=== PATIENT | female | born 1995 | race Caucasian/White ===

== ENCOUNTER → 2024-05-26 | Outpatient (CLI) | payer OTHER | END | disposition home or self-care (01) | LOC: NST 14:59 | PROVIDERS: ATTEND Obstetrics & Gynecology | DX: Z34.83 Encounter for supervision of other normal pregnancy, third trimester (principal) ==

== ENCOUNTER 2024-06-02 13:00 | Inpatient (IN) | payer OTHER ==
[~2024-06-02] VITALS: Ht 157.5 cm; Wt 68.0 kg
[2024-06-05] MEDS ORDERED: FERRACTIV IRON1 EACH PO (03:02)
[2024-06-05] MEDS ORDERED: PRENATAL TABLE1 EAC1 PO (03:02)
[2024-06-06] VITALS (11 sets, daily range): BP systolic 103–134; BP diastolic 69–85
[2024-06-06] MEDS ORDERED: MORPHINE SULFATE 4 MG/ML CARTRIDGE IV PRN (06:00)
[2024-06-06] MEDS ORDERED: RINGERS SOLUTION,LACTATED 1,000 ML IV SCH (06:00)
[2024-06-06 07:33] LABS: INR < 0.93; PARTIAL THROMBOPLASTIN TIME 28.8 SECONDS (22.0-34.0); PROTHROMBIN TIME 10.1 SECONDS (9.0-11.5)
[2024-06-06 07:36] LABS: ALBUMIN 3.1 gm/dL (3.4-5.0); BILIRUBIN TOTAL 0.41 mg/dL (0.3-1.2); CREATININE SERUM 0.71 mg/dL (0.55-1.02); GFR 96.66; GLOBULINA 3.9 G/DL (2.4-3.5); POTASSIUM 4.08 mEq/L (3.5-5.1)
[2024-06-06 07:51] LABS: HEMATOCRIT 40.4 % (36.0-45.00); HEMOGLOBIN 13.6 g/dL (12.0-15.00); MEAN CELL VOLUME 88.4 fL (80.00-100.00); MEAN CORPUSCULAR HEMOGLOBIN 29.6 pg (27.00-32.0); MEAN CORPUSCULAR HGB CONC 33.5 g/dl (32.0-36.0); PLATELET COUNT 190 K/uL (150-450); RED BLOOD COUNT 4.57 M/uL (4.00-6.00); RED CELL DISTRIBUTION WIDTH 14.6 % (11.5-14.5)
[2024-06-06] MEDS ORDERED: CHLORHEXIDINE GLUCONATE 120 ML BOTTLE TOP SCH (13:00)
[2024-06-06] MEDS ORDERED: OxyCODONE HCL/APAP UD (PERCOCET) PO PRN (13:00)
[2024-06-06] MEDS ORDERED: OXYTOCIN 1,000 ML IV SCH (13:00)
[2024-06-06] MEDS ORDERED: LIDOCAINE HCL 1% 20 ML VIAL IJ ONE (13:45)
[2024-06-06] MEDS ORDERED: ERYTHROMYCIN BASE OPHT 1GM EACH TUBE OP ONE (13:45)
[2024-06-06] MEDS ORDERED: DOCUSATE SODIUM 100MG CAP PO SCH (17:00)
[2024-06-06] MEDS ORDERED: KETOROLAC TROMETHAMINE 10 MG TABLET PO SCH (18:00)
[2024-06-07 00:53] VITALS: BP 113/73
[2024-06-07 08:43] VITALS: BP 104/67
[2024-06-07] MEDS ORDERED: PNV,CALCIUM 72/IRON/FOLIC ACID 1 TAB TABLET PO SCH (09:00)
[2024-06-07 16:20] VITALS: BP 109/61
[2024-06-08 02:36] VITALS: BP 107/64
[2024-06-08 08:37] VITALS: BP 127/76
[2024-06-08 16:41] VITALS: BP 110/72
== END 2024-06-08 17:03 | disposition home or self-care (01) | DRG 807 ==
LOC: OB/GYN 06-06 05:57 → LDR 06-06 05:57 → OB/GYN 06-06 13:30 → LDR 06-09 13:00
PROVIDERS: Obstetrics & Gynecology; ADMIT Obstetrics & Gynecology; ATTEND Obstetrics & Gynecology
PROC: 10E0XZZ Delivery of Products of Conception, External Approach (ICD-10-PCS; principal; 2024-06-06)
PROC: 0KQM0ZZ Repair Perineum Muscle, Open Approach (ICD-10-PCS; 2024-06-06)
PROC: 0W8NXZZ Division of Female Perineum, External Approach (ICD-10-PCS; 2024-06-06)
PROC: 4A1HXCZ Monitoring of Products of Conception, Cardiac Rate, External Approach (ICD-10-PCS; 2024-06-06)
DX: O70.1 Second degree perineal laceration during delivery (principal); Z37.0 Single live birth; Z3A.39 39 weeks gestation of pregnancy; Z20.822 Contact with and (suspected) exposure to COVID-19

== ENCOUNTER 2024-06-05 02:41 | Outpatient (CLI) | payer OTHER ==
[2024-06-05 01:43] VITALS: BP 117/81
[2024-06-05] MEDS ORDERED: PRENATAL TABLE1 EAC1 PO (03:02)
[2024-06-05] MEDS ORDERED: FERRACTIV IRON1 EACH PO (03:02)
[2024-06-05] MEDS ORDERED: MORPHINE SULFATE 4 MG/ML CARTRIDGE IV PRN (07:15)
[2024-06-05 07:23] VITALS: BP 134/80
[2024-06-05 10:10] VITALS: BP 134/80
== END 2024-06-05 10:16 | disposition home or self-care (01) ==
LOC: OBS/DEL 02:41
PROVIDERS: ATTEND Obstetrics & Gynecology Gynecology
DX: O36.8130 Decreased fetal movements, third trimester, not applicable or unspecified (principal); Z3A.39 39 weeks gestation of pregnancy